=== PATIENT | male | born 1935 | race Caucasian/White ===

== ENCOUNTER 2019-09-10 | Emergency (ER) | payer MEDICARE, OTHER ==
[~2019-09-10] MED LIST: ALLOPURINOL300 MG PO; AMLODIPINE2.5 MG PO; BABY ASPIRIN81 MG PO; CALCIUM600 M1 OR; HYDROCHLOROT25 MG PO; LISINOPRIL10 MG PO; LOVASTATIN40 M1 PO; MULTIVITAMI1 OR; STALEVO PO
[2019-09-10] MEDS ORDERED: CARB/LEVO SR1 TAB PO (14:45)
[2019-09-10] MEDS ORDERED: METOPROL TAR25 MG PO (14:45)
[2019-09-10] MEDS ORDERED: NORVASC5 M1 PO (14:46)
[2019-09-10] MEDS ORDERED: FINASTERIDE5 MG PO (14:46)
[2019-09-10] MEDS ORDERED: ALLOPURINOL100 MG PO (14:46)
[2019-09-10] MEDS ORDERED: AMANTADINE100 MG PO (14:46)
[2019-09-10 15:43] LABS: HEMATOCRIT 39.7 % (39.0-50.0); HEMOGLOBIN 13.2 g/dl (14.0-18.0); IMMATURE GRANULOCYTES 0.3 % (0.0-5.0); MEAN CELL VOLUME 89.8 fL CALC (80.0-100.0); MEAN CORPUSCULAR HGB 29.9 pG CALC (26.0-32.0); MEAN CORPUSCULAR HGB CONC 33.2 g/L CALC (32.0-36.0); NEUT# 4.44 thou/uL (1.82-7.42); RED BLOOD COUNT 4.42 mill/uL (4.70-6.10); RED CELL DISTRI WIDTH 13.6 % (11.5-15.5)
[2019-09-10 16:01] LABS: ALBUMIN 4.4 g/dL (3.2-5.0); ALKALINE PHOSPHATASE 85 u/l (38-126); ANION GAP 15 (6-22 (CALC)); BILIRUBIN, TOTAL 0.6 mg/dL (0.0-1.4); BUN 23 mg/dL (8-23); BUN/CREATININE RATIO 28 (12-20 (CALC)); CARBON DIOXIDE 26 mmol/l (22-30); CHLORIDE 95 mmol/l (95-108); CREATININE 0.8 mg/dL (0.7-1.3); GFR > 60 ML/MIN (>=60 (CALC)); GFR FOR AFR.AMER. > 60 ML/MIN (>=60 (CALC)); POTASSIUM 4.4 mmol/l (3.5-5.1); SGOT/AST 20 u/l (19-48); SODIUM 132 mmol/l (137-146); TOTAL PROTEIN 7.3 g/dL (6.3-8.2)
[2019-09-10 16:07] LABS: ACT PARTIAL THROMBO TIME 27.6 SECONDS (20.0-32.5); INTERNATIONAL NORMALIZED RATIO 1.1 RATIO (0.7-1.3); PROTHROMBIN TIME 11.7 SECONDS (9.0-12.5)
[2019-09-10] MEDS ORDERED: HYDROCO/APAP1 T11 PO (17:48)
== END 2019-09-10 18:11 | disposition home or self-care (01) ==
PROVIDERS: Emergency Medicine
DX: S22.42XA Multiple fractures of ribs, left side, initial encounter for closed fracture (principal); S00.31XA Abrasion of nose, initial encounter; S00.511A Abrasion of lip, initial encounter; S00.81XA Abrasion of other part of head, initial encounter; S60.512A Abrasion of left hand, initial encounter; S60.812A Abrasion of left wrist, initial encounter; S60.415A Abrasion of left ring finger, initial encounter; S60.417A Abrasion of left little finger, initial encounter; S80.212A Abrasion, left knee, initial encounter; S80.211A Abrasion, right knee, initial encounter; I10 Essential (primary) hypertension; G20 Parkinson's disease; W18.30XA Fall on same level, unspecified, initial encounter
CPT/HCPCS: Q9967

== ENCOUNTER 2022-07-31 17:29 | Emergency (ER) | payer MEDICARE, OTHER ==
[2022-07-31] VITALS (9 sets, daily range): BP systolic 119–186; BP diastolic 56–124
[~2022-07-31] VITALS: Ht 171.4 cm; Wt 60.0 kg
[~2022-07-31 17:29] MED LIST changes: +ALLOPURINOL100 MG PO; +AMANTADINE100 MG PO; +CARB/LEVO SR1 TAB PO; +FINASTERIDE5 MG PO; +HYDROCO/APAP1 T11 PO; +METOPROL TAR25 MG PO; +NORVASC5 M1 PO
[2022-07-31] MEDS ORDERED: PROSCAR5 MG PO (18:51)
[2022-07-31] MEDS ORDERED: GOCOVRI137 MG PO (18:52)
[2022-07-31] MEDS ORDERED: MYRBETRIQ50 MG PO (18:52)
== END 2022-07-31 20:24 | disposition home or self-care (01) ==
LOC: ED 17:29
PROC: 0HQ1XZZ Repair Face Skin, External Approach (ICD-10-PCS; principal; 2022-07-31)
DX: S01.112A Laceration without foreign body of left eyelid and periocular area, initial encounter (principal); I10 Essential (primary) hypertension; G20 Parkinson's disease; W19.XXXA Unspecified fall, initial encounter; Y92.009 Unspecified place in unspecified non-institutional (private) residence as the place of occurrence of the external cause; Z53.20 Procedure and treatment not carried out because of patient's decision for unspecified reasons; Z95.0 Presence of cardiac pacemaker